=== PATIENT | male | born 1940 | race Caucasian/White ===

== ENCOUNTER 2019-04-25 14:58 | Inpatient (IN) | payer MEDICAID ==
[2019-04-25 16:20] LABS: ADD MAN DIFF? NO
[2019-04-25 16:24] LABS: BASOPHIL # 0.1 10^3/ul (0.0-0.1); BASOPHILS % 0.5 % (0.0-2.0); EOSINOPHILS % 0.2 % (0.0-7.0); HEMATOCRIT 42.1 % (42.0-52.0); HEMOGLOBIN 14.1 g/dl (14.0-18.0); LYMPHOCYTES # 1.3 10^3/ul (0.8-2.9); LYMPHOCYTES % 12.7 % (15.0-51.0); MEAN CORPUSCULAR HEMOGLOBIN 31.8 pg (29.0-33.0); MEAN CORPUSCULAR HGB CONC 33.5 g/dl (32.0-37.0); MEAN CORPUSCULAR VOLUME 94.8 fl (82.0-101.0); MEAN PLATELET VOLUME 9.3 fl (7.4-10.4); MONOCYTE # 0.6 10^3/ul (0.3-0.9); MONOCYTES % 5.9 % (0.0-11.0); NEUTROPHILS % 80.4 % (39.0-77.0); PLATELET COUNT 235 10^3/UL (140-415); RED BLOOD COUNT 4.44 10^6/ul (4.70-6.10); RED CELL DISTRIBUTION WIDTH 13.8 % (11.5-14.5)
[2019-04-25 16:44] LABS: ALANINE AMINOTRANSFERASE 21 IU/L (13-69); ALBUMIN 4.4 g/dl (3.3-4.9); ALBUMIN/GLOBULIN RATIO 1.12; ALKALINE PHOSPHATASE 74 IU/L (42-121); ANION GAP 9 (5-13); ASPARTATE AMINO TRANSFERASE 27 IU/L (15-46); BILIRUBIN,INDIRECT 0.9 mg/dl (0-1.1); BILIRUBIN,TOTAL 0.9 mg/dl (0.2-1.3); BLOOD UREA NITROGEN 16 mg/dl (7-20); CALCIUM 9.3 mg/dl (8.4-10.2); CARBON DIOXIDE 28 mmol/L (21-31); CHLORIDE 101 mmol/L (97-110); GLUCOSE 100 mg/dl (70-220); POTASSIUM 4.4 mmol/L (3.5-5.1); SODIUM 138 mmol/L (135-144); TOTAL PROTEIN 8.3 g/dl (6.1-8.1)
[2019-04-25] MEDS: ARTIFICIAL TEARS 15 ML OPH BOTH EYES ×2 (16:45→21:00)
[2019-04-25 16:54] LABS: B-TYPE NATRIURETIC PEPTIDE 603 PG/ML (0-450); TROPONIN-I < 0.012 ng/ml (0.000-0.120)
[2019-04-25 18:13] LABS: MODE NASAL CANNULA; MetHgb Venous 1.4 %; Sample Type Blood venous; Site VENOUS LINE; Venous COHb 0.3 %; Venous Oxygen Sat 20.3 mmHG (55.0-75.0); Venous Total Hemglobin 14.4 g/dl
[2019-04-25] MEDS: IPRATROPIUM (NEB) 0.5 MG/2.5 ML AMP NEB (18:20)
[2019-04-25] MEDS: ALBUTEROL 0.083% (NEB) 2.5 MG/3 ML AMP NEB (18:20)
[2019-04-25 18:31] LABS: LACTIC ACID 1.4 mmol/L (0.5-2.0)
[2019-04-25] MEDS ORDERED: ACETAMINOPHEN 325 MG TAB PO ×2 (19:30→20:00)
[2019-04-25] MEDS ORDERED: ONDANSETRON 4 MG INJ IV ×2 (19:30→20:00)
[2019-04-25 19:39] LABS: AADO2 Arterial 128.7 mmHg (7.0-24.0); Allen Test ACCEPTAB; Arterial Base Excess -1.7 mmol/L (-3.0-3); Arterial Blood Gas Oxygen Sat 88.4 mmHG (95.0-100.0); Arterial COHb 0.5 % (0.0-3.0); Arterial Fraction of Oxyhgb 87.6 % (93.0-99.0); Arterial HCO3 20.5 mmol/L (22.0-26.0); Arterial MetHb 0.4 % (0.0-1.5); Arterial pCO2 28.4 mmhg (35-45); MODE NASAL CANNULA; Site Right Radial
[2019-04-25] MEDS: SOD CHLORIDE 0.9% 100 ML (19:51)
[2019-04-25] MEDS: IOHEXOL 100 ML (19:51)
[2019-04-25] MEDS ORDERED: BISACODYL (EC) 5 MG TAB PO (20:00)
[2019-04-25] MEDS ORDERED: morphine 2 MG INJ IV (20:00)
[2019-04-25] MEDS ORDERED: DOCUSATE SODIUM 100 MG CAP PO (20:00)
[2019-04-25] MEDS ORDERED: NACL 0.9% 3 ML SYG IV (20:00)
[2019-04-25 21:00] LABS: LACTIC ACID 1.6 mmol/L (0.5-2.0)
[2019-04-25] MEDS ORDERED: GUAIFENESIN/DM 5ML CUP PO (21:00)
[2019-04-25] MEDS: AZITHROMYCIN 250 MG TAB PO (21:29)
[2019-04-25] MEDS: HYDROCODONE/APAP (5/325) TAB PO (21:30)
[2019-04-25] MEDS ORDERED: ALBUTEROL/IPRATROPIUM (NEB) 3 ML AMP HHN (21:30)
[2019-04-25] MEDS: METHYLPREDNISOLONE 125 MG INJ IV (23:48)
[2019-04-25] MEDS: FAMOTIDINE 20 MG TAB PO (23:49)
[2019-04-25] MEDS: MAGNESIUM SULFATE 2 GM/50 ML 50 ML IVPB (23:49)
[2019-04-25] MEDS: ALBUTEROL/IPRATROPIUM (NEB) 3 ML AMP HHN (23:59)
[2019-04-26 06:07] LABS: ADD MAN DIFF? NO
[2019-04-26 06:18] LABS: BASOPHILS % 0.2 % (0.0-2.0); HEMATOCRIT 42.9 % (42.0-52.0); HEMOGLOBIN 14.2 g/dl (14.0-18.0); LYMPHOCYTES # 1.2 10^3/ul (0.8-2.9); MEAN CORPUSCULAR HGB CONC 33.1 g/dl (32.0-37.0); MEAN CORPUSCULAR VOLUME 96.6 fl (82.0-101.0); MEAN PLATELET VOLUME 9.9 fl (7.4-10.4); MONOCYTE # 0.3 10^3/ul (0.3-0.9); MONOCYTES % 1.8 % (0.0-11.0); NEUTROPHIL # 12.1 10^3/ul (1.6-7.5); NEUTROPHILS % 88.4 % (39.0-77.0); PLATELET COUNT 207 10^3/UL (140-415); RED BLOOD COUNT 4.44 10^6/ul (4.70-6.10); RED CELL DISTRIBUTION WIDTH 13.6 % (11.5-14.5)
[2019-04-26 06:18] LABS: WHITE BLOOD COUNT 13.6 10^3/ul (4.8-10.8)
[2019-04-26 06:33] LABS: INR 1.44; PROTIME 17.6 Sec (11.9-14.9); PT RATIO 1.4
[2019-04-26 06:51] LABS: TROPONIN-I < 0.012 ng/ml (0.000-0.120)
[2019-04-26 06:59] LABS: ALANINE AMINOTRANSFERASE 18 IU/L (13-69); ALBUMIN 3.9 g/dl (3.3-4.9); ALBUMIN/GLOBULIN RATIO 1.21; ALKALINE PHOSPHATASE 65 IU/L (42-121); ANION GAP 10 (5-13); ASPARTATE AMINO TRANSFERASE 20 IU/L (15-46); BILIRUBIN,INDIRECT 0.8 mg/dl (0-1.1); BILIRUBIN,TOTAL 0.8 mg/dl (0.2-1.3); BLOOD UREA NITROGEN 17 mg/dl (7-20); CALCIUM 9.4 mg/dl (8.4-10.2); CARBON DIOXIDE 26 mmol/L (21-31); CHLORIDE 100 mmol/L (97-110); CREATININE 1.17 mg/dl (0.61-1.24); GLUCOSE 219 mg/dl (70-220); MAGNESIUM 2.3 mg/dl (1.7-2.5); PHOSPHORUS 2.9 mg/dl (2.5-4.9); POTASSIUM 4.5 mmol/L (3.5-5.1); SODIUM 136 mmol/L (135-144); TOTAL PROTEIN 7.1 g/dl (6.1-8.1)
[2019-04-26] MEDS: ALBUTEROL/IPRATROPIUM (NEB) 3 ML AMP HHN ×2 (07:33→16:27)
[2019-04-26] MEDS: METHYLPREDNISOLONE 125 MG INJ IV ×3 (08:03→17:08)
[2019-04-26 08:04] LABS: HEMOGLOBIN A1C 6.1 % (0-5.9)
[2019-04-26] MEDS: AZITHROMYCIN 250 MG TAB PO (08:04)
[2019-04-26] MEDS: FAMOTIDINE 20 MG TAB PO (08:05)
[2019-04-26] MEDS: ENOXAPARIN 40 MG/0.4 ML SYG SC (08:08)
[2019-04-26 09:40] LABS: FREE T3 2.19 pg/ml (2.77-5.27); FREE T4 (FREE THYROXINE) 1.14 ng/dl (0.85-1.93)
[2019-04-26] MEDS: ARTIFICIAL TEARS 15 ML OPH BOTH EYES ×3 (09:47→17:09)
[2019-04-29 15:16] LABS: NIL 0.05 IU/mL; QUANTIFERON(R)-TB GOLD NEGATIVE (NEGATIVE); TB-NIL 0.01 IU/mL; TB2-NIL 0.01 IU/mL
== END 2019-04-26 19:43 | disposition home or self-care (01) | DRG 190 ==
LOC: E/R 14:58 → 6WM 19:23
DX: J44.1 Chronic obstructive pulmonary disease with (acute) exacerbation (principal); J96.01 Acute respiratory failure with hypoxia; I48.2 Chronic atrial fibrillation; I10 Essential (primary) hypertension; E03.9 Hypothyroidism, unspecified; I25.10 Atherosclerotic heart disease of native coronary artery without angina pectoris; E78.5 Hyperlipidemia, unspecified; Z87.891 Personal history of nicotine dependence; Z79.01 Long term (current) use of anticoagulants; Z95.1 Presence of aortocoronary bypass graft
CPT/HCPCS: 36415; 36600; 71045; 71250; 71275; 80053; 82803; 83036; 83605; 83735; 83880; 84100; 84439; 84443; 84481; 84484; 85025; 85610; 86480; 93005; 93306; 93970; 94640; 94664; 99285-25